=== PATIENT | female | born 2000 | race African-American/Black ===

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

== ENCOUNTER → 2019-03-04 17:16 | Outpatient (CLI) | payer SELFPAY ==
[2018-12-03 09:31] VITALS: BMI 18.1
[~2019-03-04 17:16] MED LIST changes: +CYCLOBENZAPRINE10 MG PO; +ZOFRAN8 MG PO
== END | disposition home or self-care (01) ==
LOC: D.LDO 17:16
PROVIDERS: ATTEND Obstetrics & Gynecology
DX: O36.8190 Decreased fetal movements, unspecified trimester, not applicable or unspecified (principal)

== ENCOUNTER → 2019-03-12 17:13 | Outpatient (CLI) | payer SELFPAY ==
[2018-12-03 09:31] VITALS: BMI 18.1
== END | disposition home or self-care (01) ==
LOC: D.LDO 17:13
PROVIDERS: ATTEND Obstetrics & Gynecology
DX: O26.892 Other specified pregnancy related conditions, second trimester (principal); Z3A.21 21 weeks gestation of pregnancy; V89.2XXA Person injured in unspecified motor-vehicle accident, traffic, initial encounter

== ENCOUNTER 2019-03-13 20:20 | Emergency (ER) | payer SELFPAY ==
[~2019-03-13] VITALS: Ht 160 cm; Wt 56.8 kg
[~2019-03-13 20:20] MED LIST changes: -CYCLOBENZAPRINE10 MG PO
[2019-03-13 20:25] VITALS: Ht 160 cm; Wt 56.8 kg
[2019-03-13] MEDS ORDERED: CYCLOBENZAPRINE10 MG PO (20:27)
[2019-03-13 21:45] VITALS: BP 110/53
== END 2019-03-13 21:45 | disposition home or self-care (01) ==
LOC: D.ER 20:20
DX: S39.012A Strain of muscle, fascia and tendon of lower back, initial encounter (principal); V43.62XA Car passenger injured in collision with other type car in traffic accident, initial encounter; Y93.89 Activity, other specified; Y92.410 Unspecified street and highway as the place of occurrence of the external cause; S29.012A Strain of muscle and tendon of back wall of thorax, initial encounter

== ENCOUNTER → 2019-05-27 12:32 | Outpatient (CLI) | payer MEDICAID ==
[2019-03-13 20:25] VITALS: BMI 22.1
[~2019-05-27 12:32] MED LIST changes: +CYCLOBENZAPRINE10 MG PO
== END | disposition home or self-care (01) ==
LOC: D.LDO 12:32
PROVIDERS: ATTEND Obstetrics & Gynecology
DX: O36.5990 Maternal care for other known or suspected poor fetal growth, unspecified trimester, not applicable or unspecified (principal)

== ENCOUNTER → 2019-06-02 18:11 | Outpatient (CLI) | payer MEDICAID ==
[2019-03-13 20:25] VITALS: BMI 22.1
== END | disposition home or self-care (01) ==
LOC: D.LDO 18:11
PROVIDERS: ATTEND Obstetrics & Gynecology
DX: O36.5930 Maternal care for other known or suspected poor fetal growth, third trimester, not applicable or unspecified (principal); Z3A.33 33 weeks gestation of pregnancy

== ENCOUNTER → 2019-06-05 12:22 | Outpatient (CLI) | payer MEDICAID ==
[2019-03-13 20:25] VITALS: BMI 22.1
== END | disposition home or self-care (01) ==
LOC: D.LDO 12:22
PROVIDERS: ATTEND Student in an Organized Health Care Education/Training Program
DX: O36.5990 Maternal care for other known or suspected poor fetal growth, unspecified trimester, not applicable or unspecified (principal)

== ENCOUNTER → 2019-06-08 14:28 | Outpatient (CLI) | payer MEDICAID ==
[2019-03-13 20:25] VITALS: BMI 22.1
== END | disposition home or self-care (01) ==
LOC: D.LDO 14:28
PROVIDERS: ATTEND Student in an Organized Health Care Education/Training Program
DX: O36.5990 Maternal care for other known or suspected poor fetal growth, unspecified trimester, not applicable or unspecified (principal)

== ENCOUNTER → 2019-06-11 16:39 | Outpatient (CLI) | payer MEDICAID ==
[2019-03-13 20:25] VITALS: BMI 22.1
== END | disposition home or self-care (01) ==
LOC: D.LDO 16:39
PROVIDERS: ATTEND Obstetrics & Gynecology
DX: O35.9XX0 Maternal care for (suspected) fetal abnormality and damage, unspecified, not applicable or unspecified (principal)

== ENCOUNTER → 2019-06-18 11:05 | Outpatient (CLI) | payer MEDICAID ==
[2019-03-13 20:25] VITALS: BMI 22.1
== END | disposition home or self-care (01) ==
LOC: D.LDO 11:05
PROVIDERS: ATTEND Obstetrics & Gynecology
DX: O36.5930 Maternal care for other known or suspected poor fetal growth, third trimester, not applicable or unspecified (principal); Z3A.35 35 weeks gestation of pregnancy